=== PATIENT | male | born 1960 | race Caucasian/White ===

== ENCOUNTER 2022-08-04 05:05 | Day surgery (SDC) | payer OTHER | END 2022-08-04 11:15 | disposition home or self-care (01) | LOC: CIR.AMB 05:05 | PROVIDERS: ATTEND Surgery | DX: D17.21 Benign lipomatous neoplasm of skin and subcutaneous tissue of right arm (principal); Z86.16 Personal history of COVID-19; Z85.46 Personal history of malignant neoplasm of prostate ==